=== PATIENT | female | born 1980 | race Caucasian/White ===

== ENCOUNTER 2020-05-06 10:32 | Emergency (ER) | payer OTHER, SELFPAY ==
--- NOTE | ~2020-05-06 | XR_ITS ---
EXAMINATION: XR CHEST CLINICAL INFORMATION: Shortness of breath COMPARISON: Chest radiographs 05/08/2019 TECHNIQUE: Portable upright AP view of the chest was obtained. FINDINGS: There are low lung volumes. There is no pneumothorax, airspace consolidation, pleural reaction, or effusion. No groundglass opacity. The heart is normal in size. The vascularity is normal. The hilar and mediastinal contours and bony structures are unremarkable. XR/XR chest 1V IMPRESSION: Unremarkable examination.
[2020-05-06 10:43] VITALS: BP 115/63; PULSE 100; RESP 18; TEMP 36.8; O2SAT 99; BMI 31.3
--- NOTE | 2020-05-06 11:03 | ED.SOB ---
HPI - SOB/Dyspnea General Chief Complaint: Dyspnea Stated Complaint: wheezing Time Seen by Provider: 05/06/20 11:01 Source: patient Mode of arrival: ambulatory Limitations: no limitations History of Present Illness HPI Narrative: 40-year-old female history of longstanding smoking, bronchitis came in today for evaluation 2 days of productive cough with green sputum, tightness of the chest with wheezing. No fever or chills, no chest pain. Related Data Previous Rx's Medication Instructions Recorded albuterol sulfate [ProAir HFA] 1 inh INHALATION QID PRN #8.5 g 05/06/20 albuterol sulfate [Proventil HFA] 1 inh INHALATION QID PRN #8.5 g 05/06/20 azithromycin [Zithromax Z-Holden] 250 mg PO DAILY 5 Days #5 tab 05/06/20 azithromycin [Zithromax] 250 mg PO DAILY 5 Days #5 tab 05/06/20 prednisone 20 mg PO BID #10 tab 05/06/20 prednisone 20 mg PO DAILY #10 tab 05/06/20 Allergies Allergy/AdvReac Type Severity Reaction Status Date / Time No Known Allergies Allergy Unverified 10/31/19 19:50 [No Known Allergies*] Review of Systems Review of Systems: All other systems are reviewed and are negative Constitutional: Reports as per HPI and Reports no additional constitutional complaints Eyes: Reports as per HPI and Reports no additional eye complaints Reports system reviewed and no additional complaints, except as documented Cardiovascular: Reports as per HPI and Reports no additional cardiovascular complaints Respiratory: Reports as per HPI and Reports no additional respiratory complaints Gastrointestinal: Reports as per HPI and Reports no additional gastrointestinal complaints Genitourinary: Reports no additional female genitourinary complaints Musculoskeletal: Reports no additional musculoskeletal complaints Skin/Breast: Reports system reviewed and no additional complaints, except as docu Psychiatric: Reports no additional psychiatric complaints Endocrine: Reports no additional endocrine complaints Hematologic/Lymphatic: Reports no additional hematologic/lymphatic complaints Allergic/Immunologic: Reports no additional allergic/immunologic complaints Reports system reviewed and no additional complaints, except as documented and Reports Abnormal speech present [facility] Past Medical History Medical History (Updated 05/06/20 @ 12:53 by Juana Jaramillo MD) No known health problems Social History Social History Alcohol intake: never Smoking Status: Former smoker Smoked in Last 30 Days: Yes Use of substances other than those prescribed or required for medical reasons: No Advance Directives: No Advance Directives Information Provided: No Physical Exam Vital Signs: Vital Signs: Last Vital Signs Temp 98.3 F 05/06/20 10:43 Pulse 105 H 05/06/20 11:31 Resp 18 05/06/20 10:43 BP 115/63 05/06/20 10:43 Pulse Ox 99 05/06/20 10:43 Body Mass Index 31.3 Vital signs have been reviewed as appeared to be correct. Blood pressure normal. Heart rate normal. Respiration rate normal. Temperature normal. Oxygen saturation normal. Appearance: Alert. Oriented X3. No acute distress. Head: Normal external exam. Normocephalic. Atraumatic. No Finley signs noted. No raccoon eyes noted Eyes: PERRLA. EOMI. Conjunctiva and sclera normal. Eyelids normal. ENT: TM's Normal. Pharynx normal. Uvula midline. Moist mucous membranes. No trismus noted. No drooling noted. No muffled voice noted. Neck: Normal inspection. Neck supple. FROM. No adenopathy. Thyroid Normal. No meningeal signs. No neck mass noted. CVS: Normal heart rate and rhythm. Heart sound normal. No murmurs noted. Pulses normal throughout. Respiratory: No respiratory distress. Painless inspiration. Breath sounds normal. Diffuse mild expiratory wheezing, no rhonchi noted. Chest nontender. No accessory muscle usage noted or decreased air movement noted. Abdomen: Soft and nontender. Bowel sounds normal in all 4 quadrants. No distention noted. No organomegaly noted. No visible injury noted. Back: No CVA tenderness. Full range of motion noted. Skin: Skin warm and dry. Normal skin color. Normal skin turgor. No rashes/lesions/lacerations noted. Extremities: No lower extremity edema. Extremities exhibit normal range of motion. Extremities nontender. Neuro: Oriented X 3. No motor deficit. No sensory deficit. Reflexes normal. Course Course Course Narrative: 40-year-old female with longstanding history of smoking presented with dry cough, wheezing. Patient is prone to seasonal bronchitis once a year. And patient think this which she has. Will discharge patient on Z-Holden/prednisone/albuterol. MDM - SOB/Dyspnea Lab Data Attestation: I reviewed the patient's lab results. Labs: Lab Results 05/06/20 Range/Units 11:15 COVID-19 ([facility]) Negative (Negative) COVID-19 Clin Com See Note Imaging Data Chest x-ray: Radiologist's impression: Unremarkable examination. Discharge Plan Discharge Clinical Impression: Bronchitis Patient Disposition: Home, Self-Care Instructions: Acute Bronchitis (ED) Prescriptions: New prednisone 20 mg tablet 20 mg PO BID Qty: 10 RF: 0 albuterol sulfate [Proventil HFA] 90 mcg/actuation HFA aerosol inhaler 1 inh inhalation QID PRN (Reason: shortness of breath or wheezing) Qty: 8.5 RF: 0 azithromycin [Zithromax] 250 mg tablet 250 mg PO DAILY 5 Days Qty: 5 RF: 0 prednisone 20 mg tablet 20 mg PO DAILY Qty: 10 RF: 0 azithromycin [Zithromax Z-Holden] 250 mg tablet 250 mg PO DAILY 5 Days Qty: 5 RF: 0 albuterol sulfate [ProAir HFA] 90 mcg/actuation HFA aerosol inhaler 1 inh inhalation QID PRN (Reason: shortness of breath or wheezing) Qty: 8.5 RF: 0 Referrals: Physician,Unknown [Primary Care Provider] - 2 days
[2020-05-06] MEDS: Albuterol/Iprat 2.5/0.5MG 3 ML AMPUL.NEB INHALE (11:28)
[2020-05-06] MEDS: Albuterol Sulfate (0.083%) 2.5 MG/3 ML VIAL.NEB 5 MG INHALE (11:28)
[2020-05-06 11:31] VITALS: PULSE 105; O2SAT 98
[2020-05-06 11:41] LABS: COVID-19 Test Negative (Negative)
[2020-05-06] MEDS: predniSONE 20 MG TABLET 60 MG PO (11:44)
== END 2020-05-06 13:47 | disposition home or self-care (01) ==
PROVIDERS: Emergency Provider Emergency Medicine
DX: J40 Bronchitis, not specified as acute or chronic (principal); R06.00 Dyspnea, unspecified; Z20.822 Contact with and (suspected) exposure to COVID-19; Z79.899 Other long term (current) drug therapy; Z87.891 Personal history of nicotine dependence
CPT/HCPCS: 36415; 71045; 87635; 94640; 94644; 99283

== ENCOUNTER 2020-12-22 16:59 | Emergency (ER) | payer OTHER, SELFPAY ==
--- NOTE | ~2020-12-22 | CT_ITS ---
EXAMINATION: CT HEAD WITHOUT CONTRAST CLINICAL INFORMATION: r sided headache with weakness COMPARISON: None TECHNIQUE: Contiguous axial imaging was performed from the skull base to vertex without intravenous administration of contrast. This CT examination was performed using dose optimization techniques as appropriate, variously including the following: *Automated exposure control *Adjustment of mA and/or kV according to patient size (this includes techniques or standardized protocols for targeted exams where dose is matched to indication/reason for exam; i.e. extremities or head) *Use of iterative reconstruction technique DLP: 657 mGy-cm FINDINGS: There is no evidence of acute intracranial hemorrhage or territorial infarction. No abnormal mass effect or midline shift is seen. Randle to white matter differentiation is well preserved. No extra-axial fluid collections are identified. The ventricles are normal in size. There is no abnormal attenuation within the brain parenchyma. The osseous structures and soft tissues are normal. The mastoid air cells and visualized portions of the paranasal sinuses are well aerated. CT/CT head/brain wo con IMPRESSION: No acute intracranial pathology.
[2020-12-22 17:16] VITALS: BP 112/77; PULSE 84; RESP 16; TEMP 36.8; O2SAT 100; BMI 31.0
--- NOTE | 2020-12-22 19:08 | ED_ITS ---
HPI - Headache General Chief Complaint: Headache Stated Complaint: left facial drooping headache blurred vision Time Seen by Provider: 12/22/20 18:45 Source: patient Mode of arrival: ambulatory Limitations: no limitations History of Present Illness HPI Narrative: Patient has family history of migraine been having headache on the right side for last 1 week off and on when she gets severe headache she gets light sensitivity also felt right eye droop slightly with periods of dizziness no nausea no vomiting no gait problem no fever or chills patient never had similar headache in the past Related Data Previous Rx's Medication Instructions Recorded albuterol sulfate 90 mcg/actuation 1 inh INHALATION QID PRN #8.5 g 05/06/20 aerosol inhaler (ProAir HFA) albuterol sulfate 90 mcg/actuation 1 inh INHALATION QID PRN #8.5 g 05/06/20 aerosol inhaler (Proventil HFA) azithromycin 250 mg tablet 250 mg PO DAILY 5 Days #5 tab 05/06/20 (Zithromax Z-Holden) azithromycin 250 mg tablet 250 mg PO DAILY 5 Days #5 tab 05/06/20 (Zithromax) prednisone 20 mg tablet 20 mg PO BID #10 tab 05/06/20 prednisone 20 mg tablet 20 mg PO DAILY #10 tab 05/06/20 [id number]-oebjzpiv 1 cap PO Q6H PRN #20 cap 12/22/20 50 mg-300 mg-40 mg capsule (Fioricet) Allergies Allergy/AdvReac Type Severity Reaction Status Date / Time No Known Allergies Allergy Unverified 10/31/19 19:50 [No Known Allergies*] Review of Systems Review of Systems: Yes all other systems are reviewed and are negative [facility] Past Medical History Medical History No known health problems Social History Social History Alcohol intake: never Advance Directives: No Advance Directives Information Provided: No Patient : No Physical Exam Vital Signs: Vital Signs: Last Vital Signs Temp 98.2 F 12/22/20 17:16 Pulse 84 12/22/20 17:16 Resp 16 12/22/20 17:16 BP 112/77 12/22/20 17:16 Pulse Ox 100 12/22/20 17:16 Body Mass Index 31.0 Appearance: Alert. Oriented X3. No acute distress. Eyes: PERRLA, no pallor or icterus ENT: Pharynx normal. Oral Mucosa moist no temporal artery tenderness Neck: Normal inspection. Neck supple. CVS: Normal heart rate and rhythm. Pulses normal. Respiratory: No respiratory distress. Equal air entry bilateral, no wheezing/rales/rhonchi Abdomen: Soft and nontender. Bowel sounds are present, no mass palpable, Skin: Skin warm and dry. Normal skin color. Normal skin turgor. Extremities: No lower extremity edema. No calf tenderness Neuro: Oriented X 3. No motor deficit. No sensory deficit.No cerebellar signs , cranial nerves II-XII intact MDM - Headache MDM Narrative Medical decision making narrative: Patient likely with complex migraine CT scan head is negative for any acute pathology patient felt much better headache gone almost after Imitrex. Will discharge patient on Fioricet advised to follow up PCP Differential Diagnosis Differential diagnosis: Likely migraine Discharge Plan Discharge Clinical Impression: Migraine Qualifiers: Migraine type: without aura Status migrainosus presence: without status mi grainosus Intractability: not intractable Qualified Code(s): G43.009 - Migraine without aura, not intractable, without status migrainosus Patient Disposition: Home, Self-Care Instructions: Migraine Headache (ED) Additional Instructions: Rest at home Medication for headache as prescribed Follow with PCP if not better Prescriptions: New [id number]-[id number] [Fioricet] 50-300-40 mg capsule 1 cap PO Q6H PRN (Reason: headache) Qty: 20 RF: 0 No Action prednisone 20 mg tablet 20 mg PO BID Qty: 10 RF: 0 albuterol sulfate [Proventil HFA] 90 mcg/actuation HFA aerosol inhaler 1 inh inhalation QID PRN (Reason: shortness of breath or wheezing) Qty: 8.5 RF: 0 azithromycin [Zithromax] 250 mg tablet 250 mg PO DAILY 5 Days Qty: 5 RF: 0 prednisone 20 mg tablet 20 mg PO DAILY Qty: 10 RF: 0 azithromycin [Zithromax Z-Holden] 250 mg tablet 250 mg PO DAILY 5 Days Qty: 5 RF: 0 albuterol sulfate [ProAir HFA] 90 mcg/actuation HFA aerosol inhaler 1 inh inhalation QID PRN (Reason: shortness of breath or wheezing) Qty: 8.5 R F: 0 Interventions: ED Discharge Assessment Last Done: 12/22/20 20:50 Discharge Date/Time: 12/22/20 20:51
[2020-12-22] MEDS: SUMAtriptan succinate 6 MG/0.5 ML VIAL SUBCUT (20:20)
== END 2020-12-22 20:51 | disposition home or self-care (01) ==
PROVIDERS: Emergency Provider Internal Medicine; PCP Family Medicine
DX: G43.009 Migraine without aura, not intractable, without status migrainosus (principal)
CPT/HCPCS: 70450; 96372; 99282; 99284; J3030

== ENCOUNTER 2021-11-18 12:35 | Emergency (ER) | payer OTHER, SELFPAY ==
--- NOTE | ~2021-11-18 | CT_ITS ---
EXAMINATION: CT ABDOMEN AND PELVIS WITHOUT CONTRAST CLINICAL INFORMATION: Abdominal pain COMPARISON: None TECHNIQUE: Multidetector volumetric imaging was performed from the superior aspect of the liver through the pubic symphysis. Sagittal and coronal reformatted images were obtained on the technologist's workstation. This CT examination was performed using dose optimization techniques as appropriate, variously including the following: *Automated exposure control *Adjustment of mA and/or kV according to patient size (this includes techniques or standardized protocols for targeted exams where dose is matched to indication/reason for exam; i.e. extremities or head) *Use of iterative reconstruction technique DLP: 657 mGy-cm FINDINGS: LUNG BASES: The visualized lung bases are unremarkable. LIVER, GALLBLADDER, AND BILIARY TREE: The liver is normal in size, shape, and attenuation. No focal hepatic lesion or biliary ductal dilatation is present. The gallbladder is unremarkable with no evidence of radiopaque gallstones, gallbladder wall thickening, or obvious pericholecystic inflammatory changes. PANCREAS: Unremarkable. SPLEEN: Unremarkable. ADRENAL GLANDS: Unremarkable. KIDNEYS AND URETERS: The kidneys are normal in size, shape, and attenuation. No hydronephrosis, hydroureter, or calculi seen. No perinephric stranding. BLADDER: Unremarkable. GASTROINTESTINAL TRACT: Undigested food stuffs distended stomach. No dilated bowel loops or bowel wall thickening. Normal appendix. No free air or ascites ABDOMINAL WALL: No significant hernia is appreciated. LYMPH NODES: No lymphadenopathy. VASCULAR: Unremarkable. PELVIC VISCERA: 2.4 cm fluid density benign-appearing right adnexal cyst, likely a functional ovarian cyst. Gynecologic structures otherwise grossly unremarkable. Trace free pelvic fluid within the physiologic range. OSSEOUS STRUCTURES: No acute fracture or suspicious osseous lesion. Moderate degenerative disc disease at L4-L5. Small focus of trabecular sclerosis and mild indentation of the subchondral bone plate of the anterior right femoral head near the head neck junction, of uncertain clinical significance. CT/CT abdomen pelvis wo IV con IMPRESSION: 1. No acute intra-abdominal process identified to explain the patient's abdominal pain.
[2021-11-18 13:41] VITALS: BP 120/54; PULSE 80; RESP 20; TEMP 36.9; O2SAT 100; BMI 30.9
[2021-11-18 16:37] LABS: MANUAL DIFF FLAG NO
[2021-11-18 16:39] LABS: Basophils Absolute Auto 0.1 X10*3/uL (0.0-0.2); Basophils Percent Auto 0.4 % (0-2); Eosinophils Percent Auto 0.1 % (0-4); Hematocrit 38.9 % (37.0-47.0); Hemoglobin 12.7 g/dl (12.0-16.0); Imm Gran Abs Auto 0.06 X10*3/uL (0.00-0.03); Imm Gran Pct Auto 0.4 % (0.0-0.4); Lymphocytes Absolute Auto 2.3 X10*3/uL (1.2-4.9); Lymphocytes Percent Auto 16.3 % (20-40); Mean Corpuscular HGB Conc 32.6 g/dl (31.0-35.0); Mean Corpuscular Hemoglobin 29.3 pg (27.0-33.0); Mean Corpuscular Volume 89.8 fL (80.0-98.0); Mean Platelet Volume 11.6 fL (9.4-12.3); Monocytes Absolute Auto 0.9 X10*3/uL (0.1-1.2); Monocytes Percent Auto 6.4 % (2-11); Neutrophils Absolute Auto 10.7 x10*3/uL (2.0-8.3); Neutrophils Percent Auto 76.4 % (45-73); Platelet Count 319 X10*3/uL (160-400); Red Blood Count 4.33 X10*6/uL (4.20-5.50); Red Cell Distribution Width 12.9 % (11.0-16.0)
[2021-11-18 16:46] LABS: Appearance Urine Clear; Color Urine Yellow; Glucose Urine UA Negative (Negative); Leukocyte Esterase Urine Negative (Negative); Nitrite Urine Negative (Negative); Specific Gravity - Urine >= 1.030 (1.005-1.025); Urine Blood Negative (Negative); Urine Ketones Trace mg/dL (Negative); Urine Protein Trace mg/dL (Neg-Trace)
[2021-11-18 17:00] LABS: Alanine Aminotransferase 11 U/L (0-31); Albumin Level 4.4 g/dL (3.5-5.0); Alkaline Phosphatase 47 U/L (39-117); Anion Gap 14 (12-20); Aspartate Amino Transferase 15 U/L (5-31); Bilirubin Direct 0.2 mg/dL (0.0-0.5); Bilirubin Total 0.5 mg/dL (0.0-1.0); Blood Urea Nitrogen 14 mg/dL (9-16); Calcium 9.5 mg/dL (8.4-10.2); Carbon Dioxide 24 mmol/L (22-29); Chloride 104 mmol/L (96-108); Creatinine Clr Calc Pharmacy 116.7; Estimated Glomerular Filt Rate > 60; Glucose Random 100 mg/dL (60-115); Lipase 30 U/L (8-78); Potassium 4.2 mmol/L (3.3-5.1); Sodium 138 mmol/L (135-145); Total Protein 7.1 g/dL (6.5-8.0)
[2021-11-18 19:20] LABS: UPreg QC Valid YES; Urine Pregnancy NEGATIVE (NEGATIVE)
[2021-11-18 21:57] VITALS: BP 118/71; PULSE 75; RESP 18; TEMP 36.6; O2SAT 100
[2021-11-19 01:48] VITALS: BP 126/66; PULSE 68; RESP 18; TEMP 37; O2SAT 100
[2021-11-19 02:14] VITALS: BP 116/63; PULSE 69; RESP 12; TEMP 36.8; O2SAT 100
--- NOTE | 2021-11-19 02:23 | PC.NURSE ---
Pt aox4. Breaths are even and unlabored. Reports abd pain, 6/10 at the moment and increases to 10/10 at times. Abd is soft and tender. Skin is pink warm and dry. No apparent distress noted. Will continue to monitor.
[2021-11-19 02:28] LABS: UPreg QC Valid YES; Urine Pregnancy NEGATIVE (NEGATIVE)
--- NOTE | 2021-11-19 04:01 | ED.ABDPAIN ---
HPI - Abdominal Pain General Chief Complaint: Abdominal Pain Stated Complaint: Low Abd Pain Time Seen by Provider: 11/19/21 02:23 Source: patient Mode of arrival: ambulatory Limitations: no limitations History of Present Illness HPI narrative: Patient nonspecific and diffuse abdominal pain for last 24 hours without nausea/vomiting/diarrhea no fever no chills no urinary complaints Related Data Previous Rx's Medication Instructions Recorded albuterol sulfate 90 mcg/actuation 1 inh inhalation QID PRN shortness 05/06/20 aerosol inhaler (ProAir HFA) of breath or wheezing #8.5 grams albuterol sulfate 90 mcg/actuation 1 inh inhalation QID PRN shortness 05/06/20 aerosol inhaler (Proventil HFA) of breath or wheezing #8.5 grams azithromycin 250 mg tablet 250 mg PO DAILY 5 days #5 tabs 05/06/20 (Zithromax Z-Holden) azithromycin 250 mg tablet 250 mg PO DAILY 5 days #5 tabs 05/06/20 (Zithromax) prednisone 20 mg tablet 20 mg PO BID #10 tabs 05/06/20 prednisone 20 mg tablet 20 mg PO DAILY #10 tabs 05/06/20 [id number]-bfrjhami 1 cap PO Q6H PRN headache #20 caps 12/22/20 50 mg-300 mg-40 mg capsule (Fioricet) Allergies Allergy/AdvReac Type Severity Reaction Status Date / Time No Known Allergies Allergy Unverified 10/31/19 19:50 [No Known Allergies*] Review of Systems Review of Systems Yes all other systems are reviewed and are negative [facility] Past Medical History Medical History No known health problems Social History Social History Alcohol intake: never Patient Tobacco Use Status: Former Tobacco user Use of substances other than those prescribed or required for medical reasons: No Advance Directives: No Patient : No Physical Exam ED Vital Signs: Vital Signs - 24 hr 11/18/21 13:41 11/18/21 21:57 11/19/21 01:48 Temperature 98.4 F 98 F 98.6 F Pulse Rate 80 75 68 Respiratory Rate 20 18 18 Blood Pressure 120/54 L 118/71 126/66 Pulse Oximetry 100 100 100 Oxygen Delivery Method Room Air Room Air Room Air 11/19/21 02:14 Temperature 98.3 F Pulse Rate 69 Respiratory Rate 12 Blood Pressure 116/63 Pulse Oximetry 100 Oxygen Delivery Method Room Air BMI result Body Mass Index 30.9 Appearance: Alert. Oriented X3. No acute distress. Eyes: PERRLA, No Nystagmus ENT: Pharynx normal. Oral Mucosa moist Neck: Normal inspection. Neck supple. CVS: Normal heart rate and rhythm. Pulses normal. Respiratory: No respiratory distress. Equal air entry bilateral, no wheezing/rales/rhonchi Abdomen: Soft mild lower abdomen diffuse tenderness no rebound and no guarding. Bowel sounds are present, no mass palpable, no CVA tenderness Skin: Skin warm and dry. Normal skin color. Normal skin turgor. Extremities: No lower extremity edema. No calf tenderness Neuro: Oriented X 3. No motor deficit. No sensory deficit.No cerebellar signs , cranial nerves II-XII intact MDM - Abdominal Pain MDM Narrative Medical decision making narrative: Patient lower abdominal pain without nausea vomiting diarrhea with CT scan negative for any acute pathology possible IBS discharge patient home on Bentyl CT/CT abdomen pelvis wo IV con IMPRESSION: ? 1. No acute intra-abdominal process identified to explain the patient's abdominal pain.? ? Differential Diagnosis Differential diagnosis: Likely abdominal pain Lab Data Attestation: I reviewed the patient's lab results. Result diagrams: 11/18/21 16:24 11/18/21 16:24 Labs: Lab Results 11/18/21 11/18/21 11/18/21 Range/Units 16:24 16:24 16:29 WBC 14.0 H (4.8-10.8) X10*3/uL RBC 4.33 (4.20-5.50) X10*6/uL Hgb 12.7 (12.0-16.0) g/dl Hct 38.9 (37.0-47.0) % MCV 89.8 (80.0-98.0) fL MCH 29.3 (27.0-33.0) pg MCHC 32.6 (31.0-35.0) g/dl RDW 12.9 (11.0-16.0) % Plt Count 319 (160-400) X10*3/uL MPV 11.6 (9.4-12.3) fL Immature Gran % (Auto) 0.4 (0.0-0.4) % Neut % (Auto) 76.4 H (45-73) % Lymph % (Auto) 16.3 L (20-40) % Mclean % (Auto) 6.4 (2-11) % Eos % (Auto) 0.1 (0-4) % Baso % (Auto) 0.4 (0-2) % Lymph # (Auto) 2.3 (1.2-4.9) X10*3/uL Mclean # (Auto) 0.9 (0.1-1.2) X10*3/uL Eos # (Auto) 0.0 (0.0-0.4) X10*3/uL Baso # (Auto) 0.1 (0.0-0.2) X10*3/uL Abs Immat Gran (auto) 0.06 H (0.00-0.03) X10*3/uL Absolute Neuts (auto) 10.7 H (2.0-8.3) x10*3/uL Absolute Nucleated RBC 0.000 (0.0-0.012) X10*3/uL Nucleated RBC % (auto) 0.0 (0.0-0.2) /100WBC Sodium 138 (135-145) mmol/L Potassium 4.2 (3.3-5.1) mmol/L Chloride 104 (96-108) mmol/L Carbon Dioxide 24 (22-29) mmol/L Anion Gap 14 (12-20) BUN 14 (9-16) mg/dL Creatinine 0.76 (0.5-1.4) mg/dL Estim Creat Clear Calc 116.7 Estimated GFR > 60 Random Glucose 100 (60-115) mg/dL Calcium 9.5 (8.4-10.2) mg/dL Total Bilirubin 0.5 (0.0-1.0) mg/dL Direct Bilirubin 0.2 (0.0-0.5) mg/dL AST 15 (5-31) U/L ALT 11 (0-31) U/L Alkaline Phosphatase 47 (39-117) U/L Total Protein 7.1 (6.5-8.0) g/dL Albumin 4.4 (3.5-5.0) g/dL Lipase 30 (8-78) U/L Urine Color Yellow Urine Appearance Clear Urine pH 7.0 (5.0-9.0) Ur Specific [place] >= 1.030 H (1.005-1.025) Urine Protein Trace (Neg-Trace) mg/dL Urine Glucose (UA) Negative (Negative) mg/dL Urine Ketones Trace (Negative) mg/dL Urine Blood Negative (Negative) Urine Nitrite Negative (Negative) Ur Leukocyte Esterase Negative (Negative) Urine Test (NEGATIVE) 11/18/21 11/19/21 Range/Units 16:29 02:19 WBC (4.8-10.8) X10*3/uL RBC (4.20-5.50) X10*6/uL Hgb (12.0-16.0) g/dl Hct (37.0-47.0) % MCV (80.0-98.0) fL MCH (27.0-33.0) pg MCHC (31.0-35.0) g/dl RDW (11.0-16.0) % Plt Count (160-400) X10*3/uL MPV (9.4-12.3) fL Immature Gran % (Auto) (0.0-0.4) % Neut % (Auto) (45-73) % Lymph % (Auto) (20-40) % Mclean % (Auto) (2-11) % Eos % (Auto) (0-4) % Baso % (Auto) (0-2) % Lymph # (Auto) (1.2-4.9) X10*3/uL Mclean # (Auto) (0.1-1.2) X10*3/uL Eos # (Auto) (0.0-0.4) X10*3/uL Baso # (Auto) (0.0-0.2) X10*3/uL Abs Immat Gran (auto) (0.00-0.03) X10*3/uL Absolute Neuts (auto) (2.0-8.3) x10*3/uL Absolute Nucleated RBC (0.0-0.012) X10*3/uL Nucleated RBC % (auto) (0.0-0.2) /100WBC Sodium (135-145) mmol/L Potassium (3.3-5.1) mmol/L Chloride (96-108) mmol/L Carbon Dioxide (22-29) mmol/L Anion Gap (12-20) BUN (9-16) mg/dL Creatinine (0.5-1.4) mg/dL Estim Creat Clear Calc Estimated GFR Random Glucose (60-115) mg/dL Calcium (8.4-10.2) mg/dL Total Bilirubin (0.0-1.0) mg/dL Direct Bilirubin (0.0-0.5) mg/dL AST (5-31) U/L ALT (0-31) U/L Alkaline Phosphatase (39-117) U/L Total Protein (6.5-8.0) g/dL Albumin (3.5-5.0) g/dL Lipase (8-78) U/L Urine Color Urine Appearance Urine pH (5.0-9.0) Ur Specific [place] (1.005-1.025) Urine Protein (Neg-Trace) mg/dL Urine Glucose (UA) (Negative) mg/dL Urine Ketones (Negative) mg/dL Urine Blood (Negative) Urine Nitrite (Negative) Ur Leukocyte Esterase (Negative) Urine Test NEGATIVE NEGATIVE (NEGATIVE) Discharge Plan Discharge Patient Disposition: Home, Self-Care Prescriptions: No Action prednisone 20 mg tablet 20 mg PO BID Qty: 10 0RF albuterol sulfate [Proventil HFA] 90 mcg/actuation HFA aerosol inhaler 1 inh inhalation QID PRN (Reason: shortness of breath or wheezing) Qty: 8.5 0RF azithromycin [Zithromax] 250 mg tablet 250 mg PO DAILY 5 Days Qty: 5 0RF prednisone 20 mg tablet 20 mg PO DAILY Qty: 10 0RF azithromycin [Zithromax Z-Holden] 250 mg tablet 250 mg PO DAILY 5 Days Qty: 5 0RF albuterol sulfate [ProAir HFA] 90 mcg/actuation HFA aerosol inhaler 1 inh inhalation QID PRN (Reason: shortness of breath or wheezing) Qty: 8.5 0RF pivlkhhfdc-wfsypruuhfgfy-nrsy [Fioricet] 50-300-40 mg capsule 1 cap PO Q6H PRN (Reason: headache) Qty: 20 0RF
[2021-11-19] MEDS: Dicyclomine HCl 10 MG CAPSULE 20 MG PO (04:43)
== END 2021-11-19 04:55 | disposition home or self-care (01) ==
PROVIDERS: Physician Assistant Medical; Emergency Provider Internal Medicine
DX: R10.9 Unspecified abdominal pain (principal); R19.7 Diarrhea, unspecified; Z79.899 Other long term (current) drug therapy
CPT/HCPCS: 36415; 74176; 80048; 80076; 81003; 81025; 83690; 85025; 99284

== ENCOUNTER → 2022-06-14 09:45 | Outpatient (BNVA) | payer OTHER, SELFPAY | PROVIDERS: PCP Nurse Practitioner; Visit Provider Nurse Practitioner Family | DX: M53.3 Sacrococcygeal disorders, not elsewhere classified (principal); M47.26 Other spondylosis with radiculopathy, lumbar region; M48.061 Spinal stenosis, lumbar region without neurogenic claudication; M62.830 Muscle spasm of back | CPT/HCPCS: 99202 ==

== ENCOUNTER 2025-02-04 15:22 | Emergency (ER) | payer OTHER, SELFPAY ==
[2025-02-04 15:38] VITALS: BP 128/65; PULSE 100; RESP 20; TEMP 36.4; O2SAT 97; BMI 30.5
--- NOTE | 2025-02-04 16:00 | ED.GENADULT ---
[facility] - General Adult General Chief complaint: Wound/Laceration Stated complaint: Lac to L thumb Time Seen by Provider: 02/04/25 16:50 Source: patient Mode of arrival: ambulatory Limitations: no limitations History of Present Illness ED Provider: HPI narrative: 44-year-old woman presenting with left thumb laceration up-to-date on tetanus denies any other injuries. Related Data Previous Rx's ?Medication ?Instructions ?Recorded albuterol sulfate 90 mcg/actuation 1 inh inhalation QID PRN shortness 05/06/20 aerosol inhaler (ProAir HFA) of breath or wheezing #8.5 grams albuterol sulfate 90 mcg/actuation 1 inh inhalation QID PRN shortness 05/06/20 aerosol inhaler (Proventil HFA) of breath or wheezing #8.5 grams azithromycin 250 mg tablet 250 mg PO DAILY 5 days #5 tabs 05/06/20 (Zithromax Z-Holden) azithromycin 250 mg tablet 250 mg PO DAILY 5 days #5 tabs 05/06/20 (Zithromax) xtyelnpjzd-krdjunkjgazjl-humwqfsz 1 cap PO Q6H PRN headache #20 caps 12/22/20 50 mg-300 mg-40 mg capsule (Fioricet) dicyclomine 20 mg tablet 20 mg PO QID PRN abdominal pain 11/19/21 #20 tabs lidocaine 5 % topical patch 2 patch topical DAILY pain #30 ea 06/14/22 methocarbamol 750 mg tablet 750 mg PO Q8H PRN muscle spasm #90 06/14/22 tabs methylprednisolone 4 mg tablets in See Rx Instructions PO PER PKG DIR 06/14/22 a dose pack (Medrol (Holden)) #21 ea meloxicam 15 mg tablet 15 mg PO DAILY PRN for pain #30 08/23/22 tabs Allergies Allergy/AdvReac Type Severity Reaction Status Date / Time No Known Allergies (No Known Allergy Verified 02/04/25 15:40 Allergies*) Review of Systems Constitutional: Constitutional: Reports as per [facility] Past Medical History Medical History No known health problems Social History Social History Alcohol intake: never Patient Tobacco Use Status: Former Tobacco user Advance Directives: No Advance Directives Information Provided: No Physical Exam ED Exam Exam: 2 cm left thumb laceration at the dorsal aspect in the proximal fold, full range of motion of the thumb radial pulse +2 Vital Signs: Vital Signs - 24 hr 02/04/25 15:38 Temperature 97.5 F Pulse Rate 100 Respiratory Rate 20 Blood Pressure 128/65 Pulse Oximetry 97 Oxygen Delivery Method Room Air BMI result Body Mass Index 30.5 Course Course Course Narrative: rme: 43-YEAR-OLD FEMALE PRESENTS TO ED FOR LEFT THUMB LACERATION 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 PATIENT IS UP-TO-DATE WITH TETANUS WE WILL NEED STITCHES Procedures Laceration Laceration 1: Side (If applicable): left Size (cm): 2 Description: linear Depth: simple, single layer Local Anesthetic: lidocaine 1% Amount of anesthesia used (mL): 5 Skin layer closed with: nylon Size (cm): 4-0 Number of sutures: 5 Medical Decision Making Medical Decision Making [facility] Narrative: 5:21 PM 02/04/2025 (Dr. Live Miguel): Isolated thumb laceration without any evidence for tenderness injuries, bleeding is controlled, see discharge instructions Differential Diagnosis Differential Diagnoses: The differential diagnosis associated with the presentation includes (Simple laceration of the thumb without any evidence of neurovascular compromise or tenderness injury, really no suspicion for foreign bodies giving her injury) Discharge Plan Discharge Clinical Impression: Laceration of left thumb Patient Disposition: Home, Self-Care Instructions: Laceration (DC) Additional Instructions: Remove dressing tomorrow, if the gauze is sticking to the wound get it wet 1st, afterwards you can get it wet, keep clean with soap and water and sutures can come out in 7 days you can go to urgent care or come back to the ER or follow up with the PCP Prescriptions: No Action meloxicam 15 mg tablet 15 mg PO DAILY PRN (Reason: for pain) Qty: 30 1RF albuterol sulfate [Proventil HFA] 90 mcg/actuation HFA aerosol inhaler 1 inh inhalation QID PRN (Reason: shortness of breath or wheezing) Qty: 8.5 0RF azithromycin [Zithromax] 250 mg tablet 250 mg PO DAILY 5 Days Qty: 5 0RF azithromycin [Zithromax Z-Holden] 250 mg tablet 250 mg PO DAILY 5 Days Qty: 5 0RF albuterol sulfate [ProAir HFA] 90 mcg/actuation HFA aerosol inhaler 1 inh inhalation QID PRN (Reason: shortness of breath or wheezing) Qty: 8.5 0RF axjfvnnwls-qrdhrzgkpvlyz-qscx [Fioricet] 50-300-40 mg capsule 1 cap PO Q6H PRN (Reason: headache) Qty: 20 0RF dicyclomine 20 mg tablet 20 mg PO QID PRN (Reason: abdominal pain) Qty: 20 0RF methylprednisolone [Medrol (Holden)] 4 mg tablets,dose pack See Rx Instructions PO PER PKG DIR Qty: 21 0RF Rx Instructions: PO PER PKG DIR methocarbamol 750 mg tablet 750 mg PO Q8H PRN (Reason: muscle spasm) Qty: 90 0RF lidocaine 5 % adhesive patch,medicated 2 patch topical DAILY Qty: 30 3RF Discharge Date/Time: 02/04/25 17:29 Print Language: [place] Citizen
--- OUTSIDE RECORDS SUMMARY | 2025-02-04 17:10 | XMS_ITS ---
Author Name [facility] Organization Unknown Care Team Organization Name Specialty Phone Email Start Date End Da hair [facility] [id number]
--- OUTSIDE RECORDS SUMMARY | 2025-02-04 17:10 | XMS_ITS | Clinical Summary ---
Author Organization [facility] Prior to 07/13/[address] [place] [address] Care Team Providers Care Kennel Attendant Name Role Veterinarian Small AnimalStephan Wray MD Primary Care Provider [phone] Allergies No known active allergies Medications Medication Sig Dispensed Refills Start Date End Date Status ibuprofen (ADVIL,MOTRIN) 100 MG/5ML suspensionIndications: Inflammation,Mild to Moderate Pain Take 400 mg by mouth every 4 (four) hours as needed for pain, mild pain (1-3) or other. 0 Active Social History Tobacco Use Types Packs/Day Years Used Date Smoking Tobacco: Never Assessed Sex and Gender Information Value Date Recorded Sex Assigned at Not on file Gender Identity Not on file Sexual Orientation Not on file Plan of Treatment Health Maintenance Due Date Last Done Comments Hepatitis B Vaccines (1 of 3 - 3-dose series) 1981 Hepatitis C Screening 1981 COVID-19 Vaccine (#1) 1981 Depression Screening 1993 Preventative Health Evaluation 04/27/1999 DTap / Tdap / Td (1 - Tdap) 2000 Cervical Cancer Screening (P ap Smear) 2002 Influenza Vaccine (#1) 2024 Pneumococcal Vaccine Aged Out No long er eligible based on patient's age to complete this topic RSV Ped < 20 months Aged Out No longe r eligible based on patient's age to complete this topic Care Teams Kennel Attendant Relationship Specialty Start Date End Date Stephan Wray MD PCP - General Internal Medicine 12/25/18
--- OUTSIDE RECORDS SUMMARY | 2025-02-04 17:10 | XMS_ITS | Clinical Summary ---
Author Organization [facility] [address] [facility] Address [address] [place] [phone] Phone Care Team Providers Care Industrial Relations Commissioner Name Role Phone ChonkatieSuzanna galdamez Primary Care Provider Allergies No known active allergies Medications albuterol HFA (Ventolin HFA) 90 mcg/actuation inhaler INHALE 2 PUFFS INTO THE LUNGS EVERY 4 HOURS NEEDED FOR COUGH, WHEEZING OR SHORTNESS OF BREATH. 4 Active loratadine (CLARITIN) 10 mg tablet Take 1 tablet (10 mg total) by mouth 1 (one) time each day. 90 each 1 5 Active olopatadine (PATANOL) 0.1 % ophthalmic solution Administer 1 drop into both eyes 2 (two) times a day. 30 mL 1 5 Active valACYclovir (VALTREX) 500 mg tablet Take 1 tablet (500 mg total) by mouth 2 (two) times a day. For 3 days at first sign of herpes outbreak. (Enough medication given to treat 5 separate outbreaks) 30 each 1 5 Active valACYclovir (Valtrex) 500 mg tablet Take 1 tablet (500 mg total) by mouth 2 (two) times a day. 60 each 11 5 11/15/19 26 Active Hospital, Clinic, or Other Facility Administered Medication Ordered Dose Route Frequency Start Date End Date Status cyanocobalamin (VITAMIN B-12) injection 1,000 mcgIndications:B12 deficiency 1000 mcg IM Every 30 days 08/27/2024 02/23/2025 Active Active Problems Problem Noted Date Diagnosed Date B12 deficiency 01/09/2024 Migraines 12/13/2023 Reactive airway disease without complication Lumbar disc herniation with radiculopathy 2018 Overview (12/13/2023): Dr. Jimenez -12/24/2018 - L4-5 microlumbar discectomy reasonable, she will call when ready for surgery Encounters Date Type Department Care Team Description 11/26/2024 Results Follow-Up Obstetrics [facility] - [facility] [place] [phone] Nasreen Victoria RN 11/25/2024 3:26 PM EDT - 11/25/2024 11:59 PM EDT Hospital Encounter Ultrasound - [facility] [address] [place] [phone] Pelvic pain Discharge Disposition: Home or Self Care 11/15/2024 Results Follow-Up [facility] - [facility] [address] [place] [address] Jess Zhu CNM 11/14/2024 9:15 AM EDT Office Visit Obstetrics and Gynecology - [facility] [address] [place], [place] [address] [phone] Jess Zhu CNM Pelvic pain (Primary Dx) from Last 3 Months Immunizations Immunization Administration Dates Next Due Influenza Quadravalent, MDCK , 0.5ml, preservative free (Flucelvax) 6mo and older 01/16/2018 Influenza trivalent, 0.5mL, preservative free (Fluarix; FluLaval; Fluzone) ages 6mo and older (Afluria) 3 years and older 12/31/2015 Moderna SARS-CoV-2 COVID-19, mRNA, LNP-S, preservative free 07/14/2020,06/14/2020 Tdap Tetanus diptheria acell ular pertussis (Boostrix; Adacel) 7yo and older 08/27/2024,11/14/2013 Surgical History Surgery Date Site/Laterality Comments TUBAL LIGATION PROCEDURE: HISTORICAL TUBAL LIGATION Medical History Medical History Date Comments Migraines DX:Migraines HSV-2 infection DX:HSV-2 infecti on Abnormal Pap smear of cervix Family History Medical History Relation Name Comments Diabetes Father Caesar Hypertension Father Caesar Hypothyroidism Father Caesar Diabetes Mother Winter mi Paternal Grandfather Breast cancer Neg Hx Colon cancer Neg Hx Ovarian cancer Neg Hx Uterine cancer Neg Hx Relation Name Status Comments Father Caesar Alive Mother Winter Alive Paternal Grandfather Social History Tobacco Use Types Packs/Day Years Used Date Smoking Tobacco: Former Cigarettes 0 Q uit: 08/13/2012 Smokeless Tobacco: Never Quit: 12/14/2012 Tobacco Cessation:Counseling Given: Not Answered Alcohol Use Standard Drinks/Week Comments Not Currently 0 (1 standard drink = 0.6 oz pur e alcohol) rare Housing Instability Answer Date Recorde d Are you worried that in the next 2 months you may not have stable housing? Yes 01/09/2024 Food Access & Nutrition Answer Date Rec orded Do you have access to a vari ety of food including fruits and vegetables? No 01/09/2024 Access to Healthcare Answer Date Record ed Within the last 3 months, ho w many times did you visit the emergency department for your medical care? 0 01/09/2024 Health Literacy Answer Date Recorded How often do you need to hav e someone help you when you read instructions, pamphlets, or other written material from your doctor or pharmacy? Never 01/09/2024 Caregiver: How often do you need to have someone help you when you read instructions, pamphlets, or other written material from your doctor or pharmacy? Not on file 01/09/2024 Financial Risk Answer Date Recorded How hard is it for you to pa y for the very basics like food, housing, medical care, and air conditioning / heating? Very hard 01/09/2024 Transportation Answer Date Recorded Has the lack of transportati on kept you from meetings, work, or from getting things needed for daily living? No Has the lack of transportati on kept you from medical appointments or from getting medications? No 01/09/2024 Social Isolation Answer Date Recorded How often do you feel lonely or isolated from th ose around you? Never 01/09/2024 Food Risk Answer Date Recorded Within the past 12 months we worried whether our food would run out before we got money to buy more. Often true 01/09/2024 Within the past 12 months th e food we bought just didn't last and we didn't have money to get more. Often true 01/09/2024 Dependent Care Answer Date Recorded Do you need help finding or paying for care for your loved ones. For example, child care worker or elderly care for an older adult? Yes 01/09/2024 Education Answer Date Recorded Do you think completing more education or training, like finishing a GED, going to college, or learning a trade, would be helpful for you? No 01/09/2024 Employment and Income Answer Date Recor ded During the last four weeks, have you been actively looking for work? No 01/09/2024 Living Situation Answer Date Recorded What is your living situation? Unrecognized valu e 01/09/2024 Comments No Sex and Gender Information Value Date Recorded Sex Assigned at Not on file Legal Sex Female 2:32 PM EST Gender Identity Not on file Sexual Orientation Not on file Obstetrics History * This document contains information received from the source organization and may not represent a complete record from that organization. Para Term AB IAB SAB Ectopic Multiple Livin g Live Births 4 3 3 3 3 Date Outcome GA Total Labor Labor/2nd/3rd Weight Sex Type Anes PTL Grisel A1 A5 Name Clin Term 40w 0d Vag-S pont None Living Delivery Location:[facility] Term 40w 0d Vag-S pont None Living Delivery Location:[facility] Term 40w 0d Vag-S pont None Living Delivery Location:[facility] 1999 Last Filed Vital Signs Vital Sign Reading Time Taken Comments Blood Pressure 134/77 11/14/2024 8:34 AM EDT Pulse 67 11/14/2024 8:34 AM EDT Temperature 36.8 C (98.2 F) 01/09/2024 10:13 AM EST Respiratory Rate 14 11/14/2024 8:34 AM EDT Oxygen Saturation - - Inhaled Oxygen Concentration - - Weight 89.8 kg (198 lb) 11/14/2024 8:34 AM EDT Height 155 cm (5' 1.02 ) 11/14/2024 8:34 AM EDT Body Mass Index 37.38 11/14/2024 8:34 AM EDT Plan of Treatment Upcoming Encounters Date Type Department Care Team (Late st Contact Info) Description 08/27/2025 8:30 AM EDT Appointment Radiology Department [address] [phone] Health Maintenance Due Date Last Done Comments Hepatitis B Vaccines (1 of 3 - 19+ 3-dose series) 2000 HPV Vaccines (1 - 3-dose SCDM series) 2008 COVID-19 Vaccine ( season) 2024 02/10/2021, 07/14/2020, 06/14/2020 Influenza Vaccine (#1) 2024 01/16/2018, 2015 Social Influencers of Health Screening 01/08/2025 01/09/2024 Cervical Cancer Screening: Pap Smear 09/28/2025 09/28/2022, 02/19/2019 Breast Cancer Screening 08/26/2026 08/27/19, 09/18/2023, 09/18/2023, Additional history exists Cholesterol Screening (Lipid Panel) 08/27/2029 08/27/2024, 01/09/2024, 04/28/2021 DTaP,Tdap,and Td Vaccines (3 - Td or Tdap) 08/27/2034 08/27/2024, 11/14/2013 RSV Immunization Adult Patients (1 - 1-dose 75+ series) 2056 Depression Screening Completed 11/12/2024 HIB Vaccines Aged Out No longer eligi ble based on patient's age to complete this topic HIV Screening Discontinued Hepatitis A Vaccines Aged Out No long er eligible based on patient's age to complete this topic Hepatitis C Screening Discontinued IPV Vaccines Aged Out No longer eligi ble based on patient's age to complete this topic MMR Vaccines Aged Out No longer eligi ble based on patient's age to complete this topic Meningococcal ACWY Vaccine Aged Out N o longer eligible based on patient's age to complete this topic Meningococcal B Vaccine Aged Out No l onger eligible based on patient's age to complete this topic Pneumococcal Vaccine: Pediatrics (0 to 5 Years) and At-Risk Patients (6 to 49 Years) Aged Out No longer eligible based on patient's age to complete this topic RSV Immunization Patients Under 20 months Aged Out No longer eligible based on patient's age to complete this topic Varicella Vaccines Aged Out No longer eligible based on patient's age to complete this topic Procedures Procedure Name Priority Date/Time Associated Diagnosis Comments US DUPLEX ABDOMEN/PELVIS/RETRO COMPLETE Routine 11/25/2024 3:53 PM EDT Pelvic pain US PELVIS NON OB COMPLETE W TRANSVAGINAL Routine 11/25/2024 3:53 PM EDT Pelvic pain POC URINE AUTO W/O MICRO Routine 11/14/2024 9:53 AM EDT Pelvic pain CHLAMYDIA TRACHOMATIS AND NEISSERIA GONORRHOEAE PCR Routine 11/14/2024 9:04 AM EDT Pelvic pain LIPID PANEL WITH REFLEX TO DIRECT LDL Routine 08/27/2024 11:11 AM EDT Elevated fasting glucose MG MAMMO DIGITAL DIAGNOSTIC W SAVAGE BILAT Routine 08/26/2024 8:24 AM EDT Encounter for screening mammogram for breast cancer PAP SMEAR Routine 09/28/2022 from Last 3 Months or Most Recently Relevant to Health Maintenance Results * US Pelvis Non OB Complete w Transvaginal (11/25/2024 3:53 PM EDT) Anatomical Region Laterality Modality Body, Pelvis Ultrasound 11/26/2024 11:1 4 AM EDT Impressions 11/26/2024 11:16 AM EDT Trace free fluid, otherwise unremarkable examination. -------- FINAL REPORT -------- Dictated By: Lisa Son Dictated Date: 11/26/2024 11:14 ET Assigned Physician: Lisa Son Reviewed and Electronically Signed By: Lisa Son Signed Date: 11/26/2024 11:16 ET Workstation ID: [id number] Transcribed By: Self Edit Transcribed Date: 11/26/2024 11:14 ET Narrative 11/26/2024 11:16 AM EDT EXAM: TRANSABDOMINAL AND TRANSVAGINAL PELVIC ULTRASOUND HISTORY: pelvic pain , LLQ COMPARISON: Ultrasound pelvis from 02/25/2020 Technique: Grayscale and Doppler images of the pelvis were obtained using transabdominal approach. Transvaginal approach was used to better characterize the ovaries. Color Doppler flow and spectral waveform analysis was performed. FINDINGS: The uterus is normal in size and measures 9.7 x 4.3 x 4.9 cm. The normal in caliber endometrial stripe measures up to 0.8 cm. The myometrium is unremarkable. No fibroids visualized. Right ovary measures 2.4 x 1.5 x 1.1 cm and is sonographically unremarkable. Normal arterial and venous waveforms are identified. Left ovary measures 2.8 x 2.1 x 2.6 cm and is also sonographically unremarkable. Normal arterial and venous waveforms are identified. Trace free fluid. Procedure Note Lisa Son MD - 11/26/2024 EXAM: TRANSABDOMINAL AND TRANSVAGINAL PELVIC ULTRASOUND HISTORY: pelvic pain , LLQ COMPARISON: Ultrasound pelvis from 02/25/2020 Technique: Grayscale and Doppler images of the pelvis were obtained usingtransabdominal approach. Transvaginal approach was used to bettercharacterize the ovaries. Color Doppler flow and spectral waveformanalysis was performed. FINDINGS: The uterus is normal in size and measures 9.7 x 4.3 x 4.9 cm. The normalin caliber endometrial stripe measures up to 0.8 cm. The myometrium isunremarkable. No fibroids visualized. Right ovary measures 2.4 x 1.5 x 1.1 cm and is sonographicallyunremarkable. Normal arterial and venous waveforms are identified. Left ovary measures 2.8 x 2.1 x 2.6 cm and is also sonographicallyunremarkable. Normal arterial and venous waveforms are identified. Trace free fluid. IMPRESSION: Trace free fluid, otherwise unremarkable examination. -------- FINAL REPORT -------- Dictated By: Lisa Son Dictated Date: 11/26/2024 11:14 ET Assigned Physician: Lisa Son Reviewed and Electronically Signed By: Lisa Son Signed Date: 11/26/2024 11:16 ET Workstation ID: [id number] Transcribed By: Self Edit Transcribed Date: 11/26/2024 11:14 ET Jess Zhu CNM IM US PROCEDURES Final Resul t * US Duplex Abdomen/Pelvis/Retro Complete (11/25/2024 3:53 PM EDT) Anatomical Region Laterality Modality Body Ultrasound 11/26/2024 11:1 4 AM EDT Impressions 11/26/2024 11:16 AM EDT Trace free fluid, otherwise unremarkable examination. -------- FINAL REPORT -------- Dictated By: Lisa Son Dictated Date: 11/26/2024 11:14 ET Assigned Physician: Lisa Son Reviewed and Electronically Signed By: Lisa Son Signed Date: 11/26/2024 11:16 ET Workstation ID: [id number] Transcribed By: Self Edit Transcribed Date: 11/26/2024 11:14 ET Narrative 11/26/2024 11:16 AM EDT EXAM: TRANSABDOMINAL AND TRANSVAGINAL PELVIC ULTRASOUND HISTORY: pelvic pain , LLQ COMPARISON: Ultrasound pelvis from 02/25/2020 Technique: Grayscale and Doppler images of the pelvis were obtained using transabdominal approach. Transvaginal approach was used to better characterize the ovaries. Color Doppler flow and spectral waveform analysis was performed. FINDINGS: The uterus is normal in size and measures 9.7 x 4.3 x 4.9 cm. The normal in caliber endometrial stripe measures up to 0.8 cm. The myometrium is unremarkable. No fibroids visualized. Right ovary measures 2.4 x 1.5 x 1.1 cm and is sonographically unremarkable. Normal arterial and venous waveforms are identified. Left ovary measures 2.8 x 2.1 x 2.6 cm and is also sonographically unremarkable. Normal arterial and venous waveforms are identified. Trace free fluid. Procedure Note iLsa Son MD - 11/26/2024 EXAM: TRANSABDOMINAL AND TRANSVAGINAL PELVIC ULTRASOUND HISTORY: pelvic pain , LLQ COMPARISON: Ultrasound pelvis from 02/25/2020 Technique: Grayscale and Doppler images of the pelvis were obtained usingtransabdominal approach. Transvaginal approach was used to bettercharacterize the ovaries. Color Doppler flow and spectral waveformanalysis was performed. FINDINGS: The uterus is normal in size and measures 9.7 x 4.3 x 4.9 cm. The normalin caliber endometrial stripe measures up to 0.8 cm. The myometrium isunremarkable. No fibroids visualized. Right ovary measures 2.4 x 1.5 x 1.1 cm and is sonographicallyunremarkable. Normal arterial and venous waveforms are identified. Left ovary measures 2.8 x 2.1 x 2.6 cm and is also sonographicallyunremarkable. Normal arterial and venous waveforms are identified. Trace free fluid. IMPRESSION: Trace free fluid, otherwise unremarkable examination. -------- FINAL REPORT -------- Dictated By: Lisa Son Dictated Date: 11/26/2024 11:14 ET Assigned Physician: Lisa Son Reviewed and Electronically Signed By: Lisa Son Signed Date: 11/26/2024 11:16 ET Workstation ID: [id number] Transcribed By: Self Edit Transcribed Date: 11/26/2024 11:14 ET Jess Zhu CNM IMG US PROCEDURES Final Resul t * POC Urine Auto W/O Micro (11/14/2024 9:53 AM EDT) Leukocytes UA POC Negative Negative Nitrite UA POC Negative Negative Urobilinogen UA POC Negative Negative Protein UA POC Negative Negative Specific [place] UA POC 1.002 1.001 - 1.035 Ketones UA POC Negative Negative Bilirubin UA POC Negative Negative Glucose UA POC Normal Normal, Trace Urine Urine specimen obtained by clean catch procedure / Unknown 11/14/2024 9:53 AM EDT Jess VEGAS POINT OF CARE TEST ENTER/EDIT ORDERABLES Final Result * Chlamydia trachomatis and Neisseria gonorrhoeae molecular study (11/14/2024 9:04 AM EDT) Neisseria gonorrhoeae PCR Negative Negative LAB MOLECULAR DIAGNOSTICS METHOD 11/15/2024 9:16 AM EDT [facility] Chlamydia trachomatis PCR Negative Negative LAB MOLECULAR DIAGNOSTICS METHOD 11/15/2024 9:16 AM EDT [facility] Swab Cervix uteri structure / Unknown Non-blood Collection / Unknown 11/14/2024 9:04 AM EDT 11/14/2024 9:04 AM EDT Jess [facility] LAB MICROBIOLOGY - GENERAL OR DERABLES Final Result [facility] [address] [place] [address], [place] [phone] * (ABNORMAL) Lipid panel with reflex to direct LDL (08/27/2024 11:11 AM EDT) Cholesterol 191 0 - 200 mg/dL LAB CHEMISTRY METHOD 08/27/2024 3:36 PM [facility] Triglycerides 161(H) 0 - 150 mg/dL LAB CHEMISTRY METHOD 08/27/2024 3:36 PM [facility] HDL 56 >=40 mg/dL LAB CHEMISTRY METHOD 08/27/2024 3:36 PM [facility] LDL Calculated 103(H) 0 - 100 mg/dL LAB CHEMISTRY METHOD 08/27/2024 3:36 PM [facility] VLDL Cholesterol Rob 32.2 mg/dL LAB CHEMISTRY METHOD 08/27/2024 3:36 PM T [facility] Non HDL Chol. (LDL+VLDL) 135 <145 mg/dL LAB CHEMISTRY METHOD 08/27/2024 3:36 PM [facility] Chol/HDL Ratio 3.4 0.0 - 4.4 LAB CHEMISTRY METHOD 08/27/2024 3:36 PM [facility] Blood Venous blood specimen / Unknown Venipuncture / Unknown 08/27/2024 11:11 AM EDT 08/27/2024 11:11 AM EDT us Hector SETH LAB BLOOD ORDERABLES Fi nal Result [facility] [address] [place] [address], [place] [phone] * MG Mammo Digital Diagnostic w Savage bilat (08/26/2024 8:24 AM EDT) Anatomical Region Laterality Modality Breast Bilateral Mammography 08/26/2024 8:50 AM EDT Impressions 08/26/2024 9:26 AM EDT Stable probably benign asymmetry in the inner left breast. Recommend continued follow-up in one year to include a spot compression view. No new mammographic evidence of malignancy in either breast. BREAST DENSITY: C - The breasts are heterogeneously dense which may obscure small masses. BI-RADS CATEGORY: 3 - PROBABLY BENIGN RECOMMENDATION: Diagnostic left mammogram recommended in 1 year. Screening right mammogram is recommended in 1 year. MAMMO LOCATION: [facility], [address] [place] [address], [id number], . -------- FINAL REPORT -------- Dictated By: Cinda Gayle Dictated Date: 08/26/2024 08:50 ET Assigned Physician: Cinda Gayle Reviewed and Electronically Signed By: Cinda Gayle Signed Date: 08/26/2024 09:26 ET Workstation ID: [id number] Transcribed By: Self Edit Transcribed Date: 08/26/2024 08:59 ET Narrative 08/26/2024 9:26 AM EDT EXAM: MG MAMMO DIGITAL DIAGNOSTIC W SAVAGE BILAT HISTORY: One year follow-up of a probably benign asymmetry in the inner left breast. Six-month follow-up recommended on 09/18/2023 but not performed. COMPARISON: NONE TECHNIQUE: Bilateral mediolateral oblique and craniocaudal views were obtained digitally with 3-D mammogram (digital breast tomosynthesis). Computer-aided detection was utilized in evaluation of this exam (CAD). Spot compression left CC view with tomosynthesis also performed. FINDINGS: Stable asymmetry in the posterior inner left breast on the CC view. No new suspicious mass, architectural distortion, or suspicious calcifications in either breast. Rosalba Kelly CNM IMG BI PROCEDURES Final Result * Pap smear (09/28/2022) 09/28/2022 Narrative HISTORICAL TESTING LAB RESULTING AGENCY - 10/10/2022 7:30 AM EDT [id number] THINPREP PAP, IMAGED: NEGATIVE FOR SQUAMOUS INTRAEPITHELIAL LESION AND MALIGNANCY . SCANT CELLULARITY. ESTRELLA HER , CT(ASCP) (CASE ELECTRONICALLY SIGNED 10 09 2022) RESULT OF APTIMA HIGH RISK HPV ASSAY: HIGH RISK HPV: NEGATIVE (SEROTYPES 16,18,31,33,35,39,45,51,52,56,58,59,66,68) COMPLETED ON 2022-09-29 ADEQUACY: SATISFACTORY ENDOCERVICAL/TRANSFORMATION ZONE COMPONENT PRESENT. SOURCE: THINPREP PAP HPV ANY DX: REFLEX 16 AND 18, CERVICAL, IMAGED CLINICAL INFORMATION: HPV ANY DIAGNOSIS. HORMONES IUD, PAP HX NEGATIVE, [Z12.4] Nora Campbell DO LAB CYTOLOGY ORDERABLES Final Result HISTORICAL TESTING LAB RESULTING AGENCY from Last 3 Months or Most Recently Relevant to Health Maintenance Insurance [facility] [employer] Care Teams Industrial Relations Commissioner Relationship Specialty Start Date End Date Suzanna Null DO [address] [place] [address] PCP - General 11/24/23
--- OUTSIDE RECORDS SUMMARY | 2025-02-04 17:10 | XMS_ITS | Patient Health Record ---
Author Organization [facility] Address [address] [place] [address] Care Team Providers Care Senior Analytical Chemist Name Role Phone [facility] [place] [place] [facility] Primary Care Provider Unavailable JUVENAL Juarez Unavailable [phone] [facility] Unavailable [phone] Allergies No Known Allergies Reason For Referral No Information Medications Medication SIG (Take, Route, Frequency, Duration) Notes Start Date End Date Status Valtrex 500 MG Tablet 1 tab(s) orally once a day/prn Active Ibuprofen 600 MG Tablet 1 tab(s) orally every 6 hours/prn Active Gabapentin 300 MG Capsule 1 cap(s) orally daily/prn Active PRO AIR 90 MCG/INH AEROSOL 2 PUFF(S) INHALED EVERY 6 HOURS; Duration: 30 DAY(S) *Please review for potential replacement for e-prescription and drug interaction check* Active Social History Tobacco Use: Social History Observation Description Date Details (start date - stop date) Current some da y smoker NA - NA Social History Tobacco Use: Social Info Question Answer Notes Smoking Are you a: current some day smoker Additional Details Category Social Info Options Details 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 alcohol use: yes occasionally drug use: no Coffee/Tea/Soda: yes 1 coffee daily Marital Status single Problems Problem Type SNOMED Code ICD Code Onset Dates Problem Status W/U Status Risk Notes Problem Raised antinuclear antibody (609033090) Positive SIERRA (antinuclear antibody) (R76.8) Active confirmed Problem Primary osteoarthritis (636513122) Primary osteoarthritis involving multiple joints (M15.9) Active confirmed Encounters Encounter Location Date Provider Diagnosis [facility] [address] [place] [address] 06/26/2024 [facility] Plan Of Treatment Pending Test Test Name Order Date AST ( SGOT) 02/02/2021 ALT(DO NOT USE) 02/02/2021 Insurance Providers Payer Name Payer Address Payer Phone Subscriber Number Group Number Insured Name Patient Relationship to Insured Coverage Start Date Coverage End Date [facility] [address] [address] [place] [address] [id number] ZI LAUREANO Self - patient is the insured Medical (General) History Medical History History ICD Code headaches Herpes Surgical History Surgery Date(Month/Year)
== END 2025-02-04 17:29 | disposition home or self-care (01) ==
PROVIDERS: Emergency Provider Emergency Medicine
DX: S61.012A Laceration without foreign body of left thumb without damage to nail, initial encounter (principal); W26.0XXA Contact with knife, initial encounter; Y93.89 Activity, other specified; Y92.9 Unspecified place or not applicable
CPT/HCPCS: 12001; 99281; 99284